=== PATIENT | female | born 1950 | race African-American/Black ===

== ENCOUNTER 2016-10-29 08:11 | Observation (INO) | payer MEDICARE, OTHER ==
[2016-10-23 12:16] LABS: HEMATOCRIT 42.1 % (36.0-48.0); HEMOGLOBIN 13.5 g/dL (12.0-16.0)
[2016-10-23 12:38] LABS: ALBUMIN 3.7 G/DL (3.5-5.0); ALKALINE PHOSPHATASE 113 U/L (45-117); BUN (BLOOD UREA NITROGEN) 16 MG/DL (6-23); CHLORIDE, SERUM 110 MMOL/L (96-112); CO2 (CARBON DIOXIDE) 27 MMOL/L (24-34); CREATININE 0.81 MG/DL (0.55-1.02); GFR AFRICAN AMERICAN 88 ML/MIN (>=60); GFR NON AFRICAN AMERICAN 76 ML/MIN (>=60); GLOBULIN 3.6 G/DL (2.5-4.1); GLUCOSE, SERUM 59 MG/DL (60-99); SGOT(AST) 18 U/L (5-40); SGPT(ALT) 18 U/L (5-65); SODIUM, SERUM 145 MMOL/L (135-148); TOTAL PROTEIN 7.3 G/DL (6.0-8.5)
[2016-10-23 12:39] LABS: TOTAL BILIRUBIN 0.2 MG/DL (0-1.2)
--- NOTE | ~2016-10-29 | OP ---
Record Of Operation [facility] [address] [place]. [address] NAME: ADELA DONALD : 52 STATUS : ADM IN PAT#: [id number] AGE: 66 ADM/REG DATE : 10/29/16 MR#: [id number] REPORT SERV DATE: 10/29/16 DICTATED BY: ABRAHAM TAVAREZ DATE: 10/29/16 REPORT STATUS : Draft TRANSCRIBED BY: MODL DATE: 10/29/16 DATE OF PROCEDURE: 10/29/2016 PREOPERATIVE DIAGNOSIS: Ventral hernia. POSTOPERATIVE DIAGNOSIS: Ventral hernia. PROCEDURE: Reduction and mesh patch repair of ventral hernia with component separation technique. DESCRIPTION OF OPERATIVE PROCEDURE: The patient was brought to the operating suite, placed in a supine position, and underwent satisfactory general endotracheal anesthesia without incident. Following this, the skin of the abdomen was scrubbed, prepped, and draped in usual sterile fashion. 0.5% Marcaine with epinephrine was utilized. The patient has a very large incarcerated hernia defect in the supraumbilical midline without previous incision. It was known by preoperative imaging to contain a loop of intestine. A vertical incision was made after anesthetizing the skin with 0.5% Marcaine with epinephrine. Dissecting through the skin and subcutaneous tissue, the hernia sac was encountered in the subcutaneous tissue. The mesothelial hernia sac was dissected free from the surrounding subcutaneous tissues to the muscular aponeurotic fascia using cautery dissection. At the midline of the fascia, there was a large ventral defect that measured about 6 cm in diameter. The hernia sac was excised and opened and the intestine consisting of the transverse colon as well as some omentum was adherent to the inside of the hernia sac. This was dissected off the hernia sac using cautery and then the colon was reduced back into the peritoneal cavity through the hernia defect with some difficulty. Next, the mesothelial hernia sac was excised from the margins of the defect, which again measured 6 cm. Decision was made to proceed with component separation technique. Accordingly, bilateral retrorectus dissection was performed. Initially, the anterior rectus sheath was incised. The medial aspect of the rectus muscle was identified bilaterally and then a retrorectus blunt dissection plane on the surface of the posterior rectus sheath was performed with cautery and blunt dissection for the full width of the rectus sheath and then superiorly and inferiorly in a "butterfly" fashion. The posterior rectus sheath was reapproximated in the midline with multiple interrupted [id number] sutures of 0 Ethibond following which a Ventralight ST patch 10 cm in dimension was chosen. It was trimmed in a "butterfly" pattern and placed on the surface of the posterior rectus sheath with the nonadherent side on the posterior rectus sheath. It was plicated in position with multiple firings of the SecureStrap tacker with the butterfly wings extended superiorly and inferiorly from the central defect. The anterior rectus sheath was attached. The underlying rectus muscle was then closed over the polypropylene mesh again with multiple interrupted [id number] sutures of 0 Record Of Operation [facility] [address] [facility] [place]. [address] NAME: ADELA DONALD : 52 STATUS : ADM IN PAT#: [id number] AGE: 66 ADM/REG DATE : 10/29/16 MR#: [id number] REPORT SERV DATE: 10/29/16 DICTATED BY: ABRAHAM TAVAREZ DATE: 10/29/16 REPORT STATUS : Draft TRANSCRIBED BY: RADHA DATE: 10/29/16 Ethibond. The subcutaneous tissue was irrigated and closed in 2 layers with interrupted 3-0 Vicryl and then a running subcuticular layer of 4-0 Vicryl for the skin. Dermabond skin adhesive was next placed. The patient tolerated the procedure well and was returned to the PACU in stable condition. At the termination of procedure, sponge, needle, lap, and instrument counts were correct x3. ESTIMATED BLOOD LOSS: 15-20 mL. CHRISTIANO/RADHA Abraham Tavarez M.D. / [id number] CC: Bertha Nolasco PAUL E
[~2016-10-29 08:11] MED LIST: ASA5GR PO; EDARBI40 MG PO; IBU800 PO
[2016-10-30 06:10] LABS: BASOPHILS 0.1 %; BASOPHILS ABSOLUTE 0.01 10/3/uL (0.0-0.16); EOSINOPHILS 0.7 %; EOSINOPHILS ABSOLUTE 0.05 10/3/uL (0.0-0.53); HEMATOCRIT 37.9 % (36.0-48.0); HEMOGLOBIN 12.5 g/dL (12.0-16.0); IMMATURE GRANULOCYTES 0.1 %; IMMATURE GRANULOCYTES ABSOLUTE 0.01 10/3/uL (0.0-0.11); LYMPHOCYTES 26.3 %; LYMPHOCYTES ABSOLUTE 2.01 10/3/uL (0.67-4.30); MANUAL DIFF NO %; MEAN CORPUSCULAR HEMOGLOB 28.5 pg (26.0-34.0); MEAN CORPUSCULAR VOLUME 86.5 fL (80-100); MEAN PLATELET VOLUME 9.8 fL (9.2-13.0); MONOCYTES ABSOLUTE 0.46 10/3/uL (0.21-1.20); NEUTROPHILS 66.8 %; NEUTROPHILS ABSOLUTE 5.09 10/3/uL (2.02-8.40); PLATELET COUNT 275 10/3/uL (150-400); RBC DISTRIBUTION WIDTH 14.5 % (12.0-16.0); RED CELL COUNT 4.38 10/6/uL (4.0-5.6); WHITE BLOOD CELLS 7.6 10/3/uL (4.5-10.5)
[2016-10-30 06:25] LABS: CALCIUM, SERUM 8.6 MG/DL (8.5-10.4); CHLORIDE, SERUM 105 MMOL/L (96-112); CO2 (CARBON DIOXIDE) 28 MMOL/L (24-34); CREATININE 0.93 MG/DL (0.55-1.02); GFR AFRICAN AMERICAN 75 ML/MIN (>=60); GFR NON AFRICAN AMERICAN 64 ML/MIN (>=60); POTASSIUM, SERUM 3.9 MMOL/L (3.5-5.3); SODIUM, SERUM 141 MMOL/L (135-148)
[2016-10-30 06:26] LABS: BUN (BLOOD UREA NITROGEN) 11 MG/DL (6-23); GLUCOSE, SERUM 95 MG/DL (60-99)
[2016-10-30] MEDS ORDERED: NORCO1 TA1 PO (12:28)
== END 2016-10-30 14:05 | disposition home or self-care (01) ==
LOC: SDC 08:11 → 5SO 17:11
PROVIDERS: Specialist
PROC: 0WUF0JZ Supplement Abdominal Wall with Synthetic Substitute, Open Approach (ICD-10-PCS; principal; 2016-10-29 09:00)
DX: K43.6 Other and unspecified ventral hernia with obstruction, without gangrene (principal); I10 Essential (primary) hypertension; M81.0 Age-related osteoporosis without current pathological fracture; E78.5 Hyperlipidemia, unspecified; N39.0 Urinary tract infection, site not specified; F17.210 Nicotine dependence, cigarettes, uncomplicated; Z87.440 Personal history of urinary (tract) infections; Z85.42 Personal history of malignant neoplasm of other parts of uterus; Z90.710 Acquired absence of both cervix and uterus; Z79.82 Long term (current) use of aspirin; Z79.1 Long term (current) use of non-steroidal anti-inflammatories (NSAID); Z79.899 Other long term (current) drug therapy; Z98.890 Other specified postprocedural states
CPT/HCPCS: 80048; 80053; 85014; 85018; 85025; 87641; 88302; 93005; 96372; 96374; 96376; A9270-GY; C1713; C1781; G0378; J0690; J2250; J2270; J2405; J2710; J3010